=== PATIENT | male | born 1950 | race Caucasian/White ===

== ENCOUNTER 2017-03-04 08:52 | Inpatient (IN) | payer MEDICARE ==
[2017-03-04] MEDS ORDERED: DUONEB 0.5-3 MG/3 ml Neb IH ONE ×2 (09:16→09:23)
--- NOTE | 2017-03-04 09:24 | ERPHSYRPT ---
- History of Present Illness Time Seen by Provider: 03/04/17 08:57 Source: patient, family (POA) Patient Subjective Stated Complaint: pt here for not eating well and cough nondroductive,no fever, Triage Nursing Assessment: pt arrived via wc,right arm and leg flaccid for an old stroke, pt alert, states it is hard for him to talk, she tells history , skin w/d pink. resp easy. chest clear Physician History: CC: cough Hx: 66 y/o patient moved here 6 months ago. He has cough for one month. Remote hx of stroke. No hx of heart or lung disease. He has a stented AAA. He has decreased apetite. Fevers present but last was one week ago. He has generalized weakness. No abd pain. No V/D. Normal urination. Severity: moderate Allergies/Adverse Reactions: Penicillins Allergy (Verified 03/04/17 09:07) Home Medications: No Reportable Medications [No Reported Medications] 03/04/17 [History] Hx Influenza Vaccination/Date Given: No Hx Pneumococcal Vaccination/Date Given: No Immunizations Up to Date: Yes - Review of Systems Constitutional: Fever, Fatigue, Malaise, Weakness Eyes: No Symptoms Respiratory: Cough, No Dyspnea Cardiac: No Chest Pain Abdominal/Gastrointestinal: No Abdominal Pain, No Nausea, No Vomiting, No Diarrhea Genitourinary Symptoms: No Dysuria Skin: No Rash Neurological: No Headache All Other Systems: Reviewed and Negative - Past Medical History Pertinent Past Medical History: Yes Neurological History: Stroke History: Other Other Medical History: abd aneurysm - Past Surgical History Past Surgical History: Yes Gastrointestinal: Other Other Surgical History: abd aneurysm - Social History Smoking Status: Former smoker Exposure to second hand smoke: Yes Drug Use: none Patient Lives Alone: No - Nursing Vital Signs Nursing Vital Signs: Initial Vital Signs Temperature 99.3 F 03/04/17 08:57 Pulse Rate 98 H 03/04/17 08:57 Respiratory Rate 20 03/04/17 08:57 Blood Pressure 164/93 03/04/17 08:57 O2 Sat by Pulse Oximetry 97 03/04/17 08:57 Pain Scale Pain Intensity 0 - Physical Exam General Appearance: alert Eye Exam: PERRL/EOMI Ears, Nose, Throat Exam: dry mucous membranes Neck Exam: normal inspection, non-tender, supple Respiratory Exam: diminished breath sounds, wheezing, No respiratory distress Cardiovascular Exam: regular rate/rhythm Gastrointestinal/Abdomen Exam: soft, No tenderness, No distention, No mass, No guarding Male Genitalia Exam: normal genitalia Extremity Exam: normal inspection, No calf tenderness, No pedal edema Neurologic Exam: alert, oriented x 3, cooperative, sensation nml, No motor deficits Skin Exam: warm, dry, No rash SpO2 Interpretation: normal SpO2: 97 Oxygen Delivery: Room Air - Course Nursing assessment & vital signs reviewed: Yes - Radiology Exams cxr X-ray Interpretation: Teleradiologist Report, Negative Ordered Tests: Active Orders 24 hr Category Date Time Status Clean Catch Urine Specimen STAT Care 03/04/17 09:24 Active IV Insertion STAT Care 03/04/17 09:16 Active CHEST 1 VIEW (PORTABLE) Stat Exams 03/04/17 09:17 Completed BLOOD CULTURE Stat Lab 03/04/17 09:30 Received CBC W DIFF Stat Lab 03/04/17 09:10 Completed CMP Stat Lab 03/04/17 09:10 Completed CULTURE,URINE Stat Lab 03/04/17 11:30 Received Lactic Acid Stat Lab 03/04/17 09:19 Completed UA W/ MICROSCOPIC Stat Lab 03/04/17 11:30 Completed Respiratory Nebulizer STAT RT 03/04/17 09:17 Completed Respiratory Nebulizer STAT RT 03/04/17 11:12 Active Medication Summary Generic Name Dose Route Start Last Admin Trade Name Freq PRN Reason Stop Dose Admin Levofloxacin/Dextrose 750 mg in 150 mls @ 100 mls/hr 03/04/17 12:04 Levofloxacin 750mg/150ml D5w IV 03/04/17 13:33 STAT STA Discontinued Medications Generic Name Dose Route Start Last Admin Trade Name Freq PRN Reason Stop Dose Admin Albuterol Sulfate 2.5 mg 03/04/17 11:11 03/04/17 11:22 Proventil 2.5 Mg/3 Ml Neb IH 03/04/17 11:12 2.5 mg STAT ONE Administration Albuterol Sulfate Confirm 03/04/17 11:20 Proventil 2.5 Mg/3 Ml Neb Administered 03/04/17 11:21 Dose 2.5 mg IH .STK-MED ONE Albuterol/Ipratropium 3 ml 03/04/17 09:16 01/05/18 09:29 Duoneb 0.5-3 Mg/3 Ml Neb IH 03/04/17 09:17 3 ml STAT ONE Administration Albuterol/Ipratropium Confirm 03/04/17 09:23 Duoneb 0.5-3 Mg/3 Ml Neb Administered 03/04/17 09:24 Dose 3 ml IH .STK-MED ONE Methylprednisolone Sodium Succinate 125 mg 03/04/17 11:35 03/04/17 11:55 Solu-Medrol 125 Mg IV 03/04/17 11:36 125 mg STAT ONE Administration Methylprednisolone Sodium Succinate Confirm 03/04/17 11:53 Solu-Medrol 125 Mg Administered 03/04/17 11:54 Dose 125 mg .ROUTE .STK-MED ONE Lab/Rad Data: Laboratory Result Diagrams 03/04/17 09:10 03/04/17 09:10 Laboratory Results 03/04/17 03/04/17 03/04/17 Range/Units 11:30 09:19 09:10 WBC (4.0-10.5) K/mm3 RBC (4.1-5.6) M/mm3 Hgb (12.5-18.0) gm/dl Hct (42-50) % MCV (78-100) fl MCH (26-32) pg MCHC (32-36) g/dl RDW (11.5-14.0) % Plt Count (150-450) K/mm3 MPV (6-9.5) fl Gran % (36.0-66.0) % Lymphocytes % (24.0-44.0) % Monocytes % (0.0-12.0) % Eosinophils % (0.00-5.0) % Basophils % (0.0-0.4) % Basophils # (0-0.4) Sodium 138 (136-145) mEq/L Potassium 4.0 (3.5-5.1) mEq/L Chloride 101 (98-107) mEq/L Carbon Dioxide 25.4 (21-32) mEq/L Anion Gap 15.1 H (5-15) MEQ/L BUN 13 (9-20) mg/dL Creatinine 1.51 H (0.55-1.30) mg/dl Estimated GFR 50 ML/MIN Glucose 120 H (70-110) MG/DL Lactic Acid 1.2 (0.4-2.0) Calcium 9.2 (8.5-10.1) mg/dL Total Bilirubin 0.60 (0.2-1.0) mg/dL AST 32 (15-37) U/L ALT 30 (12-78) U/L Alkaline Phosphatase 111 (46-116) U/L Serum Total Protein 9.7 H (6.4-8.2) gm/dL Albumin 3.5 (3.4-5.0) g/dL Ur Collection Type CLEAN CATCH Urine Color DARK YELLOW (YELLOW) Urine Appearance HAZY (CLEAR) Urine pH 5.0 (5-6) Ur Specific [place] 1.020 (1.005-1.025) Urine Protein TRACE (Negative) Urine Ketones NEGATIVE (NEGATIVE) Urine Blood MODERATE (0-5) Parish/ul Urine Nitrite NEGATIVE (NEGATIVE) Urine Bilirubin NEGATIVE (NEGATIVE) Urine Urobilinogen NORMAL (0-1) mg/dL Ur Leukocyte Esterase NEGATIVE (NEGATIVE) Urine Microscopic RBC 15-25 (0-2) /HPF Ur Epithelial Cells FEW (FEW) /HPF Urine Bacteria MODERATE (NEGATIVE) /HPF Urine Culture Reflexed YES (NO) Urine Glucose NEGATIVE (NEGATIVE) mg/dL Slides for Path Review Specimen Received 03/04/17 1130 03/04/17 Range/Units 09:10 WBC 11.4 H (4.0-10.5) K/mm3 RBC 5.07 (4.1-5.6) M/mm3 Hgb 13.8 (12.5-18.0) gm/dl Hct 44.2 (42-50) % MCV 87.2 (78-100) fl MCH 27.2 (26-32) pg MCHC 31.2 L (32-36) g/dl RDW 13.8 (11.5-14.0) % Plt Count 244 (150-450) K/mm3 MPV 11.3 H (6-9.5) fl Gran % 58.6 (36.0-66.0) % Lymphocytes % 25.4 (24.0-44.0) % Monocytes % 12.7 H (0.0-12.0) % Eosinophils % 3.0 (0.00-5.0) % Basophils % 0.3 (0.0-0.4) % Basophils # 0.03 (0-0.4) Sodium (136-145) mEq/L Potassium (3.5-5.1) mEq/L Chloride (98-107) mEq/L Carbon Dioxide (21-32) mEq/L Anion Gap (5-15) MEQ/L BUN (9-20) mg/dL Creatinine (0.55-1.30) mg/dl Estimated GFR ML/MIN Glucose (70-110) MG/DL Lactic Acid (0.4-2.0) Calcium (8.5-10.1) mg/dL Total Bilirubin (0.2-1.0) mg/dL AST (15-37) U/L ALT (12-78) U/L Alkaline Phosphatase (46-116) U/L Serum Total Protein (6.4-8.2) gm/dL Albumin (3.4-5.0) g/dL Ur Collection Type Urine Color (YELLOW) Urine Appearance (CLEAR) Urine pH (5-6) Ur Specific [place] (1.005-1.025) Urine Protein (Negative) Urine Ketones (NEGATIVE) Urine Blood (0-5) Parish/ul Urine Nitrite (NEGATIVE) Urine Bilirubin (NEGATIVE) Urine Urobilinogen (0-1) mg/dL Ur Leukocyte Esterase (NEGATIVE) Urine Microscopic RBC (0-2) /HPF Ur Epithelial Cells (FEW) /HPF Urine Bacteria (NEGATIVE) /HPF Urine Culture Reflexed (NO) Urine Glucose (NEGATIVE) mg/dL Slides for Path Review Specimen Received - Progress Progress Note: 03/04/17 10:11 No hx of platelet problem in the past. 03/04/17 11:09 Recheck platelet count normal at 244. 03/04/17 12:07 Wheezes improved with 2 nebs. Now fine crackes. No distress. Too weak to go home. Called Dr Gracia (oc) and will place in obs for COPD/cough and consult soial services. Counseled pt/family regarding: lab results, diagnosis, need for follow-up, rad results - Departure Time of Disposition: 12:08 Departure Disposition: Observation Clinical Impression: Acute asthmatic bronchitis, Generalized weakness, prior stroke Condition: Fair Critical Care Time: No Referrals: DOCTOR,NO FAMILY [Primary Care Provider] -
[2017-03-04 09:57] LABS: BASOPHIL % 0.3 % (0.0-0.4); Basophil (Absolute #) 0.03 (0-0.4); Eosinophil (Absolute #) 0.34 (0-0.5); Granulocyte Absolute (ANC) 6.71 (1.4-6.9); Granulocytes % 58.6 % (36.0-66.0); Hematocrit 44.2 % (42-50); Hemoglobin 13.8 gm/dl (12.5-18.0); Lymphocytes % 25.4 % (24.0-44.0); Mean Cell Volume 87.2 fl (78-100); Mean Corpuscular Hemoglobin 27.2 pg (26-32); Mean Corpuscular Hgb Concent. 31.2 g/dl (32-36); Mean Platelet Volume 11.3 fl (6-9.5); Monocyte (Absolute #) 1.45 (0.0-1.3); Monocytes % 12.7 % (0.0-12.0); Red Blood Count 5.07 M/mm3 (4.1-5.6); Red Cell Distribution Width 13.8 % (11.5-14.0); White Blood Count 11.4 K/mm3 (4.0-10.5)
--- NOTE | 2017-03-04 09:57 | XRAY ---
Indication: Cough. Comparison: None Portable chest is clear. Heart is not enlarged. Bony thorax intact with mild degenerative changes. Impression: Nonacute chest.
[2017-03-04 10:02] LABS: ALBUMIN 3.5 g/dL (3.4-5.0); ANION GAP 15.1 MEQ/L (5-15); BILIRUBIN,TOTAL 0.6 mg/dL (0.2-1.0); Calcium 9.2 mg/dL (8.5-10.1); Carbon Dioxide 25.4 mEq/L (21-32); Creatinine 1 1.51 mg/dl (0.55-1.30); Total Protein 9.7 gm/dL (6.4-8.2)
[2017-03-04 11:06] LABS: Platelet Count 244 K/mm3 (150-450)
[2017-03-04] MEDS ORDERED: PROVENTIL 2.5 MG/3 ML NEB IH ONE ×2 (11:11→11:20)
[2017-03-04] MEDS ORDERED: solu-MEDROL 125 MG IV ONE (11:35)
[2017-03-04 11:41] LABS: Appearance HAZY (CLEAR); Bilirubin NEGATIVE (NEGATIVE); Blood MODERATE Ery/ul (0-5); Glucose NEGATIVE (NEGATIVE); Ketones NEGATIVE (NEGATIVE); Leukocyte Esterase NEGATIVE (NEGATIVE); Nitrite NEGATIVE (NEGATIVE); Protein,Urine Dip TRACE (Negative); Urobilinogen NORMAL mg/dL (0-1)
[2017-03-04 11:42] LABS: Bacteria MODERATE /HPF (NEGATIVE); Epithelial Cells FEW /HPF (FEW)
[2017-03-04] MEDS ORDERED: solu-MEDROL 125 MG ONE (11:53)
[2017-03-04] MEDS ORDERED: LEVOFLOXACIN 750MG/150ML D5W 750 MG/150 ML BAG IV STA (12:04)
[2017-03-04] MEDS ORDERED: TYLENOL 325 MG PO PRN (13:05)
[2017-03-04] MEDS: Sodium Chloride 0.9% 1000 ML 1,000 ML IV SCH (13:53)
[2017-03-04] MEDS: LEVOFLOXACIN 750MG/150ML D5W 750 MG/150 ML BAG IV SCH (13:53)
[2017-03-04] MEDS: Pepcid 20 MG VIAL IV SCH ×3 (13:53→22:07)
[2017-03-04] MEDS ORDERED: DUONEB 0.5-3 MG/3 ml Neb IH SCH (15:00)
[2017-03-04] MEDS ORDERED: PHARMACY DOSING REQUEST MC ONE (16:17)
[2017-03-04] MEDS ORDERED: Cardizem IV 50 MG/10 ML IV ONE ×2 (16:33→17:24)
[2017-03-04] MEDS ORDERED: DUONEB 0.5-3 MG/3 ml Neb IH PRN (16:36)
[2017-03-04] MEDS: CARDIZEM DRIP 100 MG/100 ML D5W 100 ML IV PRN (17:08)
[2017-03-04] MEDS: ENOXAPARIN SODIUM SQ SCH (17:43)
[2017-03-04] MEDS: solu-MEDROL 125 MG IV SCH (18:01)
[2017-03-04] MEDS ORDERED: BABY ASPIRIN 81 MG CHEW PO SCH (18:30)
[2017-03-05] MEDS: CARDIZEM DRIP 100 MG/100 ML D5W 100 ML IV PRN (00:55)
[2017-03-05] MEDS: solu-MEDROL 125 MG IV SCH ×2 (00:55→07:01)
[2017-03-05] MEDS: Sodium Chloride 0.9% 1000 ML 1,000 ML IV SCH (07:00)
[2017-03-05 07:46] LABS: Granulocyte Absolute (ANC) 15.91 (1.4-6.9); Hematocrit 41.5 % (42-50); Hemoglobin 13.3 gm/dl (12.5-18.0); Mean Cell Volume 85.7 fl (78-100); Mean Corpuscular Hemoglobin 27.5 pg (26-32); Mean Platelet Volume 12.2 fl (6-9.5); Red Blood Count 4.84 M/mm3 (4.1-5.6); Red Cell Distribution Width 13.4 % (11.5-14.0); White Blood Count 18.5 K/mm3 (4.0-10.5)
[2017-03-05 07:50] LABS: Platelet Count 249 K/mm3 (150-450)
[2017-03-05 08:07] LABS: Carbon Dioxide 22.9 mEq/L (21-32); Creatinine 1 1.4 mg/dl (0.55-1.30); Potassium 4.5 mEq/L (3.5-5.1); Risk Ratio 6.7; TSH, 3RD Generation 0.466 mIU/L (0.358-3.740)
--- NOTE | 2017-03-05 09:10 | PCM.NOTE ---
Date and Time: 03/05/17904 Subjective Assessment: His nurse is at the bedside and reports that the patient's told him that he can take medications by mouth but refuses to take any medication. The patient can only answer yes or no questions and agrees that this is the case. He denies any pain. His nurse reports he only needed a breathing treatment once overnight. - Review of Systems All Other Systems: Unable due to condition (Patient has aphasia) Objective Exam General Appearance: no apparent distress Neurologic Exam: alert, cooperative Skin Exam: normal color, warm, dry Respiratory Exam: respiratory distress, other (few scattered wheezes), No crackles/rales, No rhonchi, No wheezing Cardiovascular Exam: other (irregularly irregular) Gastrointestinal/Abdomen Exam: soft, normal bowel sounds, No tenderness, No distention, No mass Extremity Exam: other (no c/c/e) OBJECTIVE DATA Vital Signs: Vital Signs - 24 hr Temp Pulse Resp BP BP Pulse Ox 03/05/17 08:59 92 H 17 177/134 95 03/05/17 08:00 83 18 151/87 95 03/05/17 07:00 97.3 F 84 18 132/87 92 L 03/05/17 06:00 86 13 137/95 95 03/05/17 05:00 85 12 168/81 93 L 03/05/17 04:00 97.5 F 78 20 142/90 96 03/05/17 03:00 77 16 165/84 94 L 03/05/17 01:58 86 14 131/84 95 03/05/17 01:00 76 17 136/91 96 03/04/17 23:39 98.2 F 81 20 146/90 94 L 03/04/17 22:57 88 18 136/81 94 L 03/04/17 22:00 89 20 129/86 96 03/04/17 21:54 93 H 19 95 03/04/17 21:00 88 17 139/78 94 L 03/04/17 19:59 99 H 15 147/81 94 L 03/04/17 19:34 97.4 F 96 H 14 139/84 94 L 03/04/17 19:00 108 H 18 148/87 92 L 03/04/17 18:00 102 H 18 151/86 92 L 03/04/17 17:28 107 H 17 125/75 92 L 03/04/17 17:08 121 H 18 144/83 03/04/17 17:00 125 H 18 152/83 93 L 03/04/17 16:00 96.8 F 142 H 22 129/84 94 L 03/04/17 14:33 98 H 16 93 L 03/04/17 13:25 99.2 F 107 H 18 157/69 94 L 03/04/17 12:08 97 03/04/17 11:50 104 H 22 155/91 96 03/04/17 11:12 94 H 18 96 03/04/17 10:58 86 18 156/90 97 03/04/17 10:53 81 20 95 03/04/17 09:32 86 22 94 L Pain Assessment - Last Documented Pain Intensity 0 Intake and Output: Intake & Output 03/03/17 03/04/17 03/05/17 03/06/17 06:59 06:59 06:59 06:59 Intake Total 917 Output Total 620 Balance 297 Weight 83.3 kg Lab Results: Lab Results-Last 24 Hours 03/04/17 03/05/17 03/05/17 Range/Units 18:17 02:30 05:35 WBC 18.5 H (4.0-10.5) K/mm3 RBC 4.84 (4.1-5.6) M/mm3 Hgb 13.3 (12.5-18.0) gm/dl Hct 41.5 L (42-50) % MCV 85.7 (78-100) fl MCH 27.5 (26-32) pg MCHC 32.0 (32-36) g/dl RDW 13.4 (11.5-14.0) % Plt Count 249 (150-450) K/mm3 MPV 12.2 H (6-9.5) fl Sodium (136-145) mEq/L Potassium (3.5-5.1) mEq/L Chloride (98-107) mEq/L Carbon Dioxide (21-32) mEq/L Anion Gap (5-15) MEQ/L BUN (9-20) mg/dL Creatinine (0.55-1.30) mg/dl Estimated GFR ML/MIN Glucose (70-110) MG/DL Calcium (8.5-10.1) mg/dL Troponin I < 0.017 < 0.017 (0.000-0.056) ng/ml Triglycerides (30-200) mg/dL Cholesterol (100-200) mg/dL LDL Cholesterol (5-99) mg/dL HDL Cholesterol (35-60) mg/dL Heart Disease Risk Ratio TSH 3rd Generation (0.358-3.740) mIU/L 03/05/17 Range/Units 05:35 WBC (4.0-10.5) K/mm3 RBC (4.1-5.6) M/mm3 Hgb (12.5-18.0) gm/dl Hct (42-50) % MCV (78-100) fl MCH (26-32) pg MCHC (32-36) g/dl RDW (11.5-14.0) % Plt Count (150-450) K/mm3 MPV (6-9.5) fl Sodium 137 (136-145) mEq/L Potassium 4.5 (3.5-5.1) mEq/L Chloride 103 (98-107) mEq/L Carbon Dioxide 22.9 (21-32) mEq/L Anion Gap 16.0 H (5-15) MEQ/L BUN 15 (9-20) mg/dL Creatinine 1.40 H (0.55-1.30) mg/dl Estimated GFR 54 ML/MIN Glucose 174 H (70-110) MG/DL Calcium 9.0 (8.5-10.1) mg/dL Troponin I (0.000-0.056) ng/ml Triglycerides 120 (30-200) mg/dL Cholesterol 201 H (100-200) mg/dL LDL Cholesterol 139 H (5-99) mg/dL HDL Cholesterol 30 L (35-60) mg/dL Heart Disease Risk Ratio 6.7 TSH 3rd Generation 0.466 (0.358-3.740) mIU/L Radiology Exams: Radiology Procedures Category Date Time Status ECHO W/2D AND DOPPLER [US] Routine Exams 03/07/17 10:00 Stop Req Multi-Disciplinary Progress Notes: Multi-Disciplinary Progress Notes 03/04/17 17:27 Pharmacy Note by Thompson Varghese 2nd note... ordered a 2nd bolus.... hr still 140-150 20 mg x 1 more dose 'iv rate at 10 mg/hr. rosa maria Initialized on 03/04/17 17:27 - END OF NOTE 03/04/17 16:39 Pharmacy Note by Thompson Varghese REQUEST PHARMACY TO DOSE CARDIZEM FOR AFIB HR =152 BP 150/90 ACCORDING TO NURSE PATIENT NOT DEHYDRATED GIVE 0.25 MG/KG (20 MG ) IV BOLUS THEN START DRIP @ 5 MG/HR ROSA MARIA Initialized on 03/04/17 16:39 - END OF NOTE Assessment/Plan (1) Atrial fibrillation with RVR Current Visit: Yes Status: Acute Assessment & Plan: Currently his rate is controlled on the diltiazem drip. Will change to cardizem ER 180 mg po daily and try to stop drip. Will consult Dr. Rao. Currently on lovenox at anticoagulation doses. Will need to make sure the a.fib is not due to valve problems on echo before deciding on anticoagulation prison. Code(s): I48.91 - UNSPECIFIED ATRIAL FIBRILLATION (2) History of cerebrovascular accident (CVA) with residual deficit Current Visit: Yes Status: Acute Assessment & Plan: Start statin. Hold on ROXY inhibitor as creatinine slightly elevated. Code(s): I69.30 - UNSPECIFIED SEQUELAE OF CEREBRAL INFARCTION (3) COPD with exacerbation Current Visit: Yes Status: Acute Assessment & Plan: Continue levofloxacin. Change to prednisone and stop IV steroids. I think the steroids are causing his leukocytosis today. Code(s): J44.1 - CHRONIC OBSTRUCTIVE PULMONARY DISEASE W (ACUTE) EXACERBATION (4) Leukocytosis Current Visit: Yes Status: Acute Code(s): D72.829 - ELEVATED WHITE BLOOD CELL COUNT, UNSPECIFIED (5) Hypertension Current Visit: Yes Status: Acute Assessment & Plan: Changing to oral diltiazem.Will add HCTZ. Hydralazine IV prn. Code(s): I10 - ESSENTIAL (PRIMARY) HYPERTENSION (6) Depression Current Visit: Yes Status: Acute Assessment & Plan: [facility] consult for depression. If patient does refuse his oral medications, he will need an evaluation by [facility] to make sure they feel he is competent to make this decision as not taking his medications will most likely result in . Code(s): F32.9 - MAJOR DEPRESSIVE DISORDER, SINGLE EPISODE, UNSPECIFIED
[2017-03-05] MEDS ORDERED: Miscellaneous Medication Order MC ONE (09:16)
[2017-03-05] MEDS ORDERED: APRESOLINE 20 MG/ML INJ IV PRN (09:18)
[2017-03-05] MEDS: LEVOFLOXACIN 750MG/150ML D5W 750 MG/150 ML BAG IV SCH (09:35)
[2017-03-05] MEDS: Cardizem CD 180 MG PO SCH (09:35)
[2017-03-05] MEDS: ECOTRIN 81 MG PO SCH (09:35)
[2017-03-05] MEDS: DELTASONE 20 MG PO SCH (09:36)
[2017-03-05] MEDS: hydroDIURIL 25 MG PO SCH (09:36)
[2017-03-05] MEDS: ENOXAPARIN SODIUM SQ SCH ×2 (09:36→22:08)
[2017-03-05 09:39] LABS: BAND 6 % (0.0-2.0); Lymphocytes 31 % (24-44); Monocyte 2 % (0.0-12.0); Neutrophils 61 % (36.-66.); Total Cells Counted 100
[2017-03-05 09:40] LABS: ANISOCYTOSIS 1+; Poikilocytosis 1+
[2017-03-05 09:41] LABS: Platelet Estimate NORMAL (NORMAL)
[2017-03-05] MEDS: LIPITOR 40MG PO SCH (22:08)
[2017-03-06] MEDS: Sodium Chloride 0.9% 1000 ML 1,000 ML IV SCH (03:58)
[2017-03-06 05:54] LABS: Granulocyte Absolute (ANC) 18.13 (1.4-6.9); Hemoglobin 12.8 gm/dl (12.5-18.0); Mean Cell Volume 85.7 fl (78-100); Mean Corpuscular Hemoglobin 27.4 pg (26-32); Mean Platelet Volume 12.8 fl (6-9.5); Red Blood Count 4.67 M/mm3 (4.1-5.6); Red Cell Distribution Width 13.5 % (11.5-14.0); White Blood Count 20.9 K/mm3 (4.0-10.5)
[2017-03-06 06:08] LABS: ANION GAP 14.8 MEQ/L (5-15); Calcium 8.7 mg/dL (8.5-10.1); Carbon Dioxide 23.1 mEq/L (21-32); Creatinine 1 1.51 mg/dl (0.55-1.30); Potassium 3.6 mEq/L (3.5-5.1)
[2017-03-06 06:12] LABS: Platelet Count 247 K/mm3 (150-450)
[2017-03-06 07:36] LABS: ANISOCYTOSIS 1+; ATYPICAL LYMPHS 2 %; BAND 5 % (0.0-2.0); Lymphocytes 8 % (24-44); Monocyte 2 % (0.0-12.0); Neutrophils 83 % (36.-66.); Poikilocytosis 1+; Total Cells Counted 100
[2017-03-06 07:38] LABS: Platelet Estimate NORMAL (NORMAL)
[2017-03-06] MEDS: DELTASONE 20 MG PO SCH (10:29)
[2017-03-06] MEDS: hydroDIURIL 25 MG PO SCH (10:29)
[2017-03-06] MEDS: LEVOFLOXACIN 750MG/150ML D5W 750 MG/150 ML BAG IV SCH (10:30)
[2017-03-06] MEDS: Cardizem CD 180 MG PO SCH (10:30)
[2017-03-06] MEDS: ECOTRIN 81 MG PO SCH (10:30)
[2017-03-06] MEDS: ENOXAPARIN SODIUM SQ SCH ×2 (10:30→22:01)
[2017-03-06] MEDS ORDERED: Zestril 20 MG PO ONE (13:38)
--- NOTE | 2017-03-06 15:13 | PCM.NOTE ---
Date and Time: 03/06/17 1508 Subjective Assessment: He denies any pain. Communication is difficult due to aphasia from the stroke as he can only answer yes or no to questions. His nurse yesterday reported that [facility] wanted to do a face to face with him. He reports he has been taking his medications. He denies any shortness of breath. - Review of Systems Additional Findings: He denies pain. He denies shortness of breath. Denies having any concerns. Additional review is difficult to obtain due to his aphasia. Objective Exam General Appearance: no apparent distress Neurologic Exam: alert, cooperative, aphasia, other (right sided weakness of arm and leg) Skin Exam: normal color, warm, dry Respiratory Exam: normal breath sounds, lungs clear, No crackles/rales, No rhonchi, No wheezing Cardiovascular Exam: other (irregularly irregular rhythm, normal rate) Gastrointestinal/Abdomen Exam: soft, normal bowel sounds, No tenderness, No distention, No mass Extremity Exam: other (no c/c/e) OBJECTIVE DATA Vital Signs: Vital Signs - 24 hr Temp Pulse Resp BP Pulse Ox 03/06/17 11:45 98.2 F 66 18 185/88 94 L 03/06/17 08:12 98 F 64 18 155/68 96 03/06/17 04:00 97.9 F 61 13 161/67 95 03/05/17 23:56 98.2 F 65 15 159/63 92 L 03/05/17 21:36 67 15 91 L 03/05/17 20:00 98.6 F 74 20 166/85 94 L 03/05/17 16:00 97.4 F 87 17 161/94 94 L Pain Assessment - Last Documented Pain Intensity 0 Intake and Output: Intake & Output 03/04/17 03/05/17 03/06/17 03/07/17 06:59 06:59 06:59 06:59 Intake Total 917 1975 Output Total 620 350 Balance 297 1625 Weight 83.3 kg Lab Results: Lab Results-Last 24 Hours 03/06/17 03/06/17 Range/Units 05:35 05:35 WBC 20.9 H (4.0-10.5) K/mm3 RBC 4.67 (4.1-5.6) M/mm3 Hgb 12.8 (12.5-18.0) gm/dl Hct 40.0 L (42-50) % MCV 85.7 (78-100) fl MCH 27.4 (26-32) pg MCHC 32.0 (32-36) g/dl RDW 13.5 (11.5-14.0) % Plt Count 247 (150-450) K/mm3 MPV 12.8 H (6-9.5) fl Segmented Neutrophils 83 H (36.-66.) % Band Neutrophils 5 H (0.0-2.0) % Lymphocytes (Manual) 8 L (24-44) % Monocytes (Manual) 2 (0.0-12.0) % Differential Comment ABNORMAL Atypical Lymphocytes 2 % Platelet Estimate NORMAL (NORMAL) Poikilocytosis 1+ Anisocytosis 1+ Sodium 136 (136-145) mEq/L Potassium 3.6 (3.5-5.1) mEq/L Chloride 102 (98-107) mEq/L Carbon Dioxide 23.1 (21-32) mEq/L Anion Gap 14.8 (5-15) MEQ/L BUN 22 H (9-20) mg/dL Creatinine 1.51 H (0.55-1.30) mg/dl Estimated GFR 50 ML/MIN Glucose 189 H (70-110) MG/DL Calcium 8.7 (8.5-10.1) mg/dL Radiology Exams: Radiology Procedures Category Date Time Status ECHO W/2D AND DOPPLER [US] Routine Exams 03/07/17 10:00 Stop Req Assessment/Plan (1) Atrial fibrillation with controlled ventricular response Current Visit: Yes Status: Acute Assessment & Plan: Rate is currently controlled with oral diltiazem. Continue lovenox 1 mg/kg q [address] Rao consulted. Code(s): I48.91 - UNSPECIFIED ATRIAL FIBRILLATION (2) History of cerebrovascular accident (CVA) with residual deficit Current Visit: Yes Status: Acute Assessment & Plan: Stable at this time. Continue aspirin 81 mg po daily. Code(s): I69.30 - UNSPECIFIED SEQUELAE OF CEREBRAL INFARCTION (3) COPD with exacerbation Current Visit: Yes Status: Acute Assessment & Plan: Decrease prednisone to 20 mg po daily. Code(s): J44.1 - CHRONIC OBSTRUCTIVE PULMONARY DISEASE W (ACUTE) EXACERBATION (4) Leukocytosis Current Visit: Yes Status: Acute Assessment & Plan: I think this is due to the steroids. His lungs are clear, urine culture and blood cultures are now growth to date, he is not on any oxygen and he is afebrile. Code(s): D72.829 - ELEVATED WHITE BLOOD CELL COUNT, UNSPECIFIED (5) Hypertension Current Visit: Yes Status: Acute Assessment & Plan: I started lisinopril. Continue cardizem. Code(s): I10 - ESSENTIAL (PRIMARY) HYPERTENSION (6) Depression Current Visit: Yes Status: Acute Assessment & Plan: [facility] plans to see him Tuesday. Code(s): F32.9 - MAJOR DEPRESSIVE DISORDER, SINGLE EPISODE, UNSPECIFIED
[2017-03-06] MEDS: LIPITOR 40MG PO SCH ×2 (22:01→22:03)
[2017-03-07] MEDS: Sodium Chloride 0.9% 1000 ML 1,000 ML IV SCH ×2 (00:04→21:36)
[2017-03-07 06:09] LABS: Granulocyte Absolute (ANC) 12.98 (1.4-6.9); Hematocrit 39.6 % (42-50); Hemoglobin 12.5 gm/dl (12.5-18.0); Mean Cell Volume 86.1 fl (78-100); Mean Corpuscular Hemoglobin 27.2 pg (26-32); Mean Corpuscular Hgb Concent. 31.6 g/dl (32-36); Mean Platelet Volume 11.8 fl (6-9.5); Red Cell Distribution Width 13.8 % (11.5-14.0); White Blood Count 16.9 K/mm3 (4.0-10.5)
[2017-03-07 06:25] LABS: Calcium 8.3 mg/dL (8.5-10.1); Carbon Dioxide 25.4 mEq/L (21-32); Creatinine 1 1.4 mg/dl (0.55-1.30); Potassium 3.5 mEq/L (3.5-5.1)
[2017-03-07 06:33] LABS: Platelet Count 216 K/mm3 (150-450)
[2017-03-07 07:04] LABS: BAND 1 % (0.0-2.0); Lymphocytes 16 % (24-44); Monocyte 2 % (0.0-12.0); Neutrophils 81 % (36.-66.); Total Cells Counted 100
[2017-03-07 07:06] LABS: Platelet Estimate NORMAL (NORMAL)
--- NOTE | 2017-03-07 08:13 | HP ---
HISTORY OF PRESENT ILLNESS: This is a 66 year-old man who presented to the emergency department with his ex- who is his Power of General Office Clerk (POA). The history is taken from the emergency room physician report as his POA is not present now. She stated that they moved here six months ago and he has had a cough for the past month, a remote history of a stroke and a stent to abdominal aortic aneurysm. She reported he had fevers but none for the past week and generalized he has been very weak. He has not complained of any pain. After the patient arrived to Med/Surg, I was called as the patient had tachycardia and some irregular heartbeat and they done an EKG and this revealed atrial fibrillation so the patient was transferred to the ICU to be started on Cardizem drip. REVIEW OF SYSTEMS: He can answer Yes or No to questions. He denies any pain. When asked if he has a good appetite he said "No". Otherwise review of systems is unobtainable due to his aphasia from history of a stroke. MEDICATIONS: None. ALLERGIES: PENICILLIN. PHYSICAL EXAMINATION: VITAL SIGNS: Temperature current 96.8F, temperature max 99.3F, heart rate 84 to 122, respiratory rate 16 to 22, blood pressure 125 to 164 over 75 to 93. Oxygen saturation 92 to 97% on room air. GENERAL: The patient is lying in bed. He is awake and again will answer Yes or No to questions. CVS: His heart has an irregularly irregular tachycardic rhythm with no murmurs, gallops or rubs appreciated. CHEST: He has wheezing bilaterally when auscultated anteriorly. ABDOMEN: Soft, nontender, nondistended with normal bowel sounds. EXTREMITIES: He has weakness of his right arm and right leg and is unable to move these. NEURO: His speech is affected by history of a stroke. LABORATORY DATA AND TESTS: White blood cell count 11,400. Creatinine 1.5. UA with 15 to 25 red blood cells, moderate bacteria. Blood cultures and urine cultures are in lab. Chest x-ray was read as nonacute chest on a portable x-ray. EKG was atrial fibrillation with heart rate of 149. ASSESSMENT AND PLAN: 1) ATRIAL FIBRILLATION WITH RAPID VENTRICULAR RESPONSE: I asked the pharmacy to dose the Cardizem. They gave him two - 10 mg boluses and he is currently on a drip. His heart rate is fluctuating between 80 - 120. I have started him on Lovenox 1 mg/kg subcutaneously every 12 hours. I have ordered an echocardiogram for Tuesday. Hopefully we will be able to change his Cardizem to oral form tomorrow if his rate is under control, will check serial troponins and another EKG. I will check his TSH. I will check a fasting lipid profile in the morning. 2) HISTORY OF STROKE. I am going to start him on an 81 mg aspirin, will continue with anticoagulation with Lovenox. 3) CHRONIC OBSTRUCTIVE PULMONARY DISEASE EXACERBATION: He has been started on levofloxacin and IV steroids as well as DuoNeb and will continue with these. 4) RENAL INSUFFICIENCY: Will recheck his creatinine in the morning. He is on IV fluids at the rate of 60 ml/hour right now. 5) DEEP VENOUS THROMBOSIS PROPHYLAXIS: Again he is on Lovenox now.
[2017-03-07] MEDS: ECOTRIN 81 MG PO SCH ×2 (10:06→15:09)
[2017-03-07] MEDS: Cardizem CD 180 MG PO SCH ×2 (10:06→15:09)
[2017-03-07] MEDS: DELTASONE 20 MG PO SCH ×2 (10:06→15:09)
[2017-03-07] MEDS: ENOXAPARIN SODIUM SQ SCH ×3 (10:07→23:44)
[2017-03-07] MEDS: LEVOFLOXACIN 750MG/150ML D5W 750 MG/150 ML BAG IV SCH ×2 (10:07→15:09)
[2017-03-07] MEDS: Zestril 20 MG PO SCH ×2 (10:07→15:09)
[2017-03-07] MEDS: hydroDIURIL 25 MG PO SCH ×2 (10:07→15:09)
--- NOTE | 2017-03-07 10:53 | CONS ---
CONSULT DATE: 03/06/2017 BRIEF HISTORY: This is a 66 year-old male who was seen for atrial fibrillation. The patient was initially admitted because of cough and diagnosed to have bronchitis. While he was monitored he went into atrial fibrillation and was placed on Cardizem. He is back to sinus rhythm. The patient is unable to give any meaningful historical information. He had a stroke and is only able to answer questions with Yes or No. He has history of endovascular repair of abdominal aortic aneurysm based on historic information. CARDIAC RISK FACTORS: Negative for diabetes. Positive for hypertension. He does not smoke. Positive for hyperlipidemia. CURRENT MEDICATIONS: Aspirin, Lipitor, diltiazem, subcu Lovenox, hydrochlorothiazide, lisinopril. 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 There is no definite history of any heart or lung disease. GI: Still able to take oral medication but has to be crushed. : No renal symptoms noted. SOCIAL HISTORY: He lives at home with his ex-. No significant alcohol intake. PHYSICAL EXAMINATION: Blood pressure 161/67, heart rate 61, respirations about 14. GENERAL: The patient is an elderly male who is awake somewhat mild aphasic. HEENT: Unremarkable. NECK: No significant JVD. No carotid bruit. CHEST: The breath sounds are harsh. CARDIAC: Heart tones are normal. The rhythm is regular. There is a grade 2/6 mid systolic murmur. ABDOMEN: Soft with normal bowel sounds. EXTREMITIES: No significant edema with decreased distal pulses. LAB DATA AND DIAGNOSTIC TESTS: The EKG earlier from 03/04/2017 showed atrial fibrillation. The rhythm strip now shows sinus rhythm. IMPRESSION: In essence the patient had paroxysmal atrial fibrillation currently in normal sinus rhythm, continue with Cardizem drip. 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 Echocardiogram will be obtained. We will continue with current medications to control blood pressure. I suggest placing the patient on Norvasc.
--- NOTE | 2017-03-07 14:42 | PCM.NOTE ---
Date and Time: 03/07/17 7414 Subjective Assessment: Mr Ruiz has expressive aphasia. He only answers yes or no to questions or nods his head yes or no to questions. Nursing reports this afternoon that he has been refusing all his medications since last night. [facility] saw him this AM and reports they do not feel like he is depressed. I used the licensed audiologist line (Urdu is his [place] language) with case finisher, Poncho, this afternoon and he said he was safe at home. When I asked if he felt hopeless he shrugged his shoulders. He said he would refuse to take medications at home when asked. I explained to him why I wanted him to take the medication for atrial fibrillation to keep his blood thin and that that was to prevent stroke and and that the other medication is to control his heart rate when he is in atrial fibrillation so it doesn't beat too fast and make him feel bad or have a heart attack. He voiced he understand and was asked then with this new information if he would be willing to take his medications and he said yes. I asked about his code status and based on him nodding his head yes, he wants to continue to be a full code. I tried to also explain that taking his medications at home will keep him out of the hospital. I explained hospice to him and he was agreeable to evaluation by hospice. Poncho came to tell me that when they went in to give him his medications shortly after this conversation with the licensed audiologist, he said that he would not take them. His ex- and her male friend then arrived. She reported that she and Mr. Ruiz were once and have been for 25 years but she has been caring for him since he had a stroke and that she never remarried.She reports Mr. Ruiz was in [place], [place] when he had his stroke but he was most recently living with her in [place] until they moved to [place] in September or October of 2016. She reports she has been unable to find a doctor for him. She states for 6 years he has refused to take medications but she states she can get him to take them. They brought his medications in at the end of our talk and he took them. He took the capsule whole with chocolate ice cream and the tablets crushed with chocolate ice cream. She reports before she brought him to the ER, he had a high heart rate, was pale and had had a cough and couldn't seem to get it out. She reports he is able to walk, carry a plate and uses a motorized scooter to get around the house. She reports he only says a few words and often motions with his hands. She reports his Vincentian was as good as hers and he can usually understand everything said in Vincentian. She wants to bring him back home. - Review of Systems Constitutional: Other (aphasia, right sided weakness of arm and leg) All Other Systems: Unable due to condition Objective Exam General Appearance: no apparent distress, alert, other (answers yes and no to questions with these words and also nodding or shaking his head.) Skin Exam: normal color, warm, dry Respiratory Exam: normal breath sounds, lungs clear, No crackles/rales, No rhonchi, No wheezing Cardiovascular Exam: regular rate/rhythm, normal heart sounds, No murmur, No friction rub, No gallop Gastrointestinal/Abdomen Exam: soft, normal bowel sounds, No tenderness, No distention, No mass Extremity Exam: other (no c/c/e) OBJECTIVE DATA Vital Signs: Vital Signs - 24 hr Temp Pulse Resp BP Pulse Ox 03/07/17 12:00 98.1 F 65 18 122/65 97 03/07/17 08:37 60 18 94 L 03/07/17 07:48 97.6 F 64 18 131/60 96 03/07/17 04:00 98.1 F 57 L 20 145/67 94 L 03/07/17 00:10 98.4 F 68 22 118/59 93 L 03/06/17 20:00 98.2 F 68 20 148/73 93 L 03/06/17 15:50 97.8 F 71 18 148/72 96 Pain Assessment - Last Documented Pain Intensity 0 Pain Scale Used 0-10 Pain Scale Intake and Output: Intake & Output 03/05/17 03/06/17 03/07/17 03/08/17 06:59 06:59 06:59 06:59 Intake Total 917 1975 1785 Output Total 720 681 9528 Balance 297 1625 735 Weight 83.3 kg 83.325 kg Lab Results: Lab Results-Last 24 Hours 03/07/17 03/07/17 Range/Units 05:10 05:10 WBC 16.9 H (4.0-10.5) K/mm3 RBC 4.60 (4.1-5.6) M/mm3 Hgb 12.5 (12.5-18.0) gm/dl Hct 39.6 L (42-50) % MCV 86.1 (78-100) fl MCH 27.2 (26-32) pg MCHC 31.6 L (32-36) g/dl RDW 13.8 (11.5-14.0) % Plt Count 216 (150-450) K/mm3 MPV 11.8 H (6-9.5) fl Segmented Neutrophils 81 H (36.-66.) % Band Neutrophils 1 (0.0-2.0) % Lymphocytes (Manual) 16 L (24-44) % Monocytes (Manual) 2 (0.0-12.0) % Differential Comment NORMAL Platelet Estimate NORMAL (NORMAL) Sodium 138 (136-145) mEq/L Potassium 3.5 (3.5-5.1) mEq/L Chloride 103 (98-107) mEq/L Carbon Dioxide 25.4 (21-32) mEq/L Anion Gap 13.0 (5-15) MEQ/L BUN 25 H (9-20) mg/dL Creatinine 1.40 H (0.55-1.30) mg/dl Estimated GFR 54 ML/MIN Glucose 125 H (70-110) MG/DL Calcium 8.3 L (8.5-10.1) mg/dL Radiology Exams: Radiology Procedures Category Date Time Status ECHO W/2D AND DOPPLER [US] Routine Exams 03/07/17 08:00 Taken Multi-Disciplinary Progress Notes: Multi-Disciplinary Progress Notes 03/07/17 10:25 (created 03/07/17 10:52) Case Management Note by Rhiannon Polanco RETURN CALL FROM PT'S , PROVIDED SLIP FILLER WITH SOCIAL SECURITY NUMBER TO VERIFY MEDICARE BENEFITS. CALL TO BILLING OFFICE TO REPORT. SPOKE WITH XOCHILT FAY. Initialized on 03/07/17 10:52 - END OF NOTE 03/07/17 10:01 Case Management Note by Rhiannon Polanco LONG DISCUSSION WITH PT'S , VIA TELEPHONE, REGARDING PT'S NEEDS ON DISCHARGE. REPORTS THAT HE IS NORMALLY INDEPENDENT WITH ALL ADL'S. DOES NOT USE ANY TYPE OF DEVICE FOR ASSISTANCE. DISCUSSED THAT PT HAS BEEN REFUSING HIS MEDICATIONS, AND REPORTS THAT IT IS NOT UNUSUAL. REPORTS THAT HE HAS BEEN REFUSING HIS MEDICATIONS FOR THE LAST 6 1/2 YEARS. REPORTS THAT HIS DOCTORS UP [facility] STOPPED GIVING HIM RX'S BECAUSE HE HAS REFUSED MEDS SINCE HIS STROKE. PT SPEAKS VERY LITTLE SLOVENIAN AND IS HARD TO COMMUNICATE WITH. ALSO REPORTS THAT PT HAS MEDICARE PART A AND PART B, BUT HAS BEEN UNABLE TO LOCATE HIS MEDICARE CARD, AND IS UNSURE OF SOCIAL SECURITY NUMBER. REPORTS THAT SHE IS TRYING TO LOCATE PAPERWORK WITH HIS INFORMATION ON IT. PROVIDED WITH CASE MANAGEMENT CALL BACK NUMBER. AWAIT RETURN CALL FROM . DECLINED NEEDS FOR DISCHARGE. REPORTS THAT THEY ARE PLANNING FOR HIM TO RETURN HOME TO PRE EPISODIC LEVEL OF [facility]. Initialized on 03/07/17 10:01 - END OF NOTE Assessment/Plan (1) Paroxysmal atrial fibrillation Current Visit: Yes Status: Acute Assessment & Plan: Continue lovenox 1 mg/kg subcut bid until we can clarify what his insurance will cover or what he can afford as far as anticoagution goes to prevent a stroke. Continue with diltiazem to control rate if he goes into atrial fibrillation. Echo completed but not read yet. Dr. Rao has seen him and suggests anticoaguation. His reports he used to be on Xarelto but she is unsure what for and they asked the doctor to stop this after seeing TV advertisements about this. His condition is guarded and extremely poor if he does not take his medications when he goes home. Code(s): I48.0 - PAROXYSMAL ATRIAL FIBRILLATION (2) History of cerebrovascular accident (CVA) with residual deficit Current Visit: Yes Status: Acute Assessment & Plan: Will ask for hospice consult. He and his ex- are agreeable to this. Continue statin and he is on an fausto inhibitor now. Code(s): I69.30 - UNSPECIFIED SEQUELAE OF CEREBRAL INFARCTION (3) COPD with exacerbation Current Visit: Yes Status: Acute Assessment & Plan: Continue to wean prednisone. Continue IV levofloxacin Day 3. Code(s): J44.1 - CHRONIC OBSTRUCTIVE PULMONARY DISEASE W (ACUTE) EXACERBATION (4) Leukocytosis Current Visit: Yes Status: Acute Assessment & Plan: Improved with decrease in steroid. Code(s): D72.829 - ELEVATED WHITE BLOOD CELL COUNT, UNSPECIFIED (5) Hypertension Current Visit: Yes Status: Acute Assessment & Plan: Currently well controlled. Code(s): I10 - ESSENTIAL (PRIMARY) HYPERTENSION (6) Depression Current Visit: Yes Status: Acute Assessment & Plan: Cleared by [facility] but may still have some underlying mood disorder given his equivocal answer to whether or not he feels hopeless. Code(s): F32.9 - MAJOR DEPRESSIVE DISORDER, SINGLE EPISODE, UNSPECIFIED
[2017-03-07] MEDS: LIPITOR 40MG PO SCH ×2 (23:35→23:42)
[2017-03-08 08:03] LABS: Hematocrit 36.6 % (42-50); Hemoglobin 11.8 gm/dl (12.5-18.0); Mean Cell Volume 85.7 fl (78-100); Mean Corpuscular Hemoglobin 27.6 pg (26-32); Mean Corpuscular Hgb Concent. 32.2 g/dl (32-36); Mean Platelet Volume 9.1 fl (6-9.5); Platelet Count 246 K/mm3 (150-450); Red Blood Count 4.27 M/mm3 (4.1-5.6); Red Cell Distribution Width 13.6 % (11.5-14.0); White Blood Count 10.7 K/mm3 (4.0-10.5)
[2017-03-08 08:21] LABS: ANION GAP 11.5 MEQ/L (5-15); Calcium 8.1 mg/dL (8.5-10.1); Carbon Dioxide 24.5 mEq/L (21-32); Creatinine 1 1.31 mg/dl (0.55-1.30); Potassium 3.8 mEq/L (3.5-5.1)
[2017-03-08] MEDS ORDERED: Coumadin 10 MG PO STA (08:58)
[2017-03-08] MEDS: Zestril 20 MG PO SCH (10:05)
[2017-03-08] MEDS: Cardizem CD 180 MG PO SCH (10:05)
[2017-03-08] MEDS: ENOXAPARIN SODIUM SQ SCH (10:05)
[2017-03-08] MEDS: LEVOFLOXACIN 750MG/150ML D5W 750 MG/150 ML BAG IV SCH (10:05)
[2017-03-08] MEDS: ECOTRIN 81 MG PO SCH (10:05)
[2017-03-08] MEDS: hydroDIURIL 25 MG PO SCH (10:05)
[2017-03-08 11:40] VITALS: BP 148/79; PULSE 67; O2SAT 96
--- NOTE | 2017-03-08 14:16 | PCM.DCORD ---
- Discharge Discharge Date: 03/08/17 Disposition: Home, Self-Care Condition: Fair Prescriptions: New Warfarin Sodium 5 mg [Coumadin 5 MG] 5 mg PO DAILY@1800 #30 tablet Diltiazem HCl [Diltiazem 24Hr Cd] 180 mg PO DAILY #30 cap.er.24h Aspirin EC 81 mg [Ecotrin 81 mg] 81 mg PO DAILY #30 tablet.ec Atorvastatin Calcium [Lipitor 40Mg] 80 mg PO HS #30 tablet Lisinopril/Hydrochlorothiazide [Lisinopril-Hctz 20-25 mg Tab] 1 each PO QAM # 30 tablet Instructions: Atrial Fibrillation, Acute Bronchitis Additional Instructions: [facility] WILL FOLLOW ON DISCHARGE. Check INR on 03/14/17. Follow up with: SUMA SIFUENTES [ACTIVE STAFF] - 03/15/17 2:45 pm Forms: Patient Portal Information
--- NOTE | 2017-03-09 09:02 | ECHO ---
Transthoracic echocardiographic examination and color Doppler was done on 03/07/2017. INDICATION: New onset of atrial fibrillation. IMPRESSION: 1) NO REGIONAL WALL MOTION ABNORMALITY. ESTIMATED GLOBAL LEFT VENTRICULAR EJECTION FRACTION 60%. 2) MODERRATE MITRAL REGURGITATION. 3) MILD TRICUSPID REGURGITATION. RIGHT VENTRICULAR SYSTOLIC PRESSURE OF 29 MM OF MERCURY. 4) TRACE PULMONIC INSUFFICIENCY. 5) LEFT ATRIAL ENLARGEMENT. 6) TRACE PERICARDIAL EFFUSION. The left ventricle is visualized and demonstrated adequate motion of all the segments. Estimated global left ventricular ejection fraction 60%. The left ventricular thickness is normal. The mitral valve is seen and this opens adequately. There is moderate mitral regurgitation. The left atrium is enlarged. The aortic valve opens adequately. The right side chambers are normal. There is mild tricuspid regurgitation. The right ventricular systolic pressure of 29 mm of Mercury. There is also trace pericardial effusion.
[2017-03-09] MEDS ORDERED: Coumadin 5 MG PO SCH (18:00)
--- NOTE | 2017-03-10 09:14 | DS ---
DISCHARGE DIAGNOSES: 1) PAROXYSMAL ATRIAL FIBRILLATION. 2) HISTORY OF CEREBROVASCULAR ACCIDENT WITH RESIDUAL DEFECT. 3) CHRONIC OBSTRUCTIVE PULMONARY DISEASE WITH EXACERBATION. 4) LEUKOCYTOSIS. 5) HYPOTENSION. 6) DEPRESSION. DISCHARGE PHYSICAL EXAMINATION: VITALS: Temperature current 98.3F, temperature max 98.3F, heart rate 57 to 68, respiratory rate 16 to 20, blood pressure 126 to 160 over 59 to 79. Oxygen saturation 94 to 97% on room air. GENERAL: The patient is lying in bed and in no acute distress. He is aphasic. He nods his head Yes or No when he answered questions. EXTREMITIES: His arm and leg are flaccid. CVS: His heart had a regular rate and rhythm. No murmurs, gallops or rubs are appreciated. CHEST: Clear to auscultation bilaterally. No crackles or wheezes were appreciated. ABDOMEN: Soft, nontender, nondistended with normal bowel sounds. EXTREMITIES: No clubbing, cyanosis or edema. SKIN: Warm, dry and intact. HOSPITAL COURSE: 1) PAROXYSMAL ATRIAL FIBRILLATION: Shortly after he was admitted to the hospital he went into atrial fibrillation with rapid ventricular response and at that time was transferred to ICU and started on Cardizem drip, this was able to be changed to oral diltiazem. The patient stayed in sinus rhythm. Dr. Rao was consulted and saw him. We have given him during his hospitalization Lovenox 1 mg/kg every 12 hours and then this was changed to Coumadin. I discussed with Dr. Rao. He did not feel like we needed to bridge this with Lovenox and the reason why we had waited was because we were not sure what his coverage for prescriptions was going to be. He will need to have his international normalized ratio checked this coming Tuesday. He went home with Hospice so hopefully they can help with this. 2) HISTORY OF CVA WITH RESIDUAL DEFECT: He is aphasic and has paralysis of his right side. Please see the progress note on the day before his discharge. We asked for Hospice consult. His family which is his ex- and he were agreeable to this. He was also continued on a statin and was started on an ROXY inhibitor that also helped with controlling his blood pressure. He was discharged on a statin to try help decrease his risk of further stroke as well as 81 mg aspirin. 3) CHRONIC OBSTRUCTIVE PULMONARY DISEASE WITH EXACERBATION: While he was in the hospital he was given levofloxacin which he finished five days of as well as IV steroids and then prednisone. He finished enough days of both that he did not need to be discharged on these and his lung exam had improved. 4) LEUKOCYTOSIS: This was secondary to the steroid and improved as the steroid was decreased. 5) HYPOTENSION: His blood pressure was controlled on lisinopril 20 mg p.o. daily, hydrochlorothiazide 25 mg p.o. daily, diltiazem CD 180 mg p.o. daily. He was discharged on these. I did combine the lisinopril hydrochlorothiazide in a combination tablet to decrease the number of pills he has to take. 6) DEPRESSION: I feel that there may be some underlying depression here but [facility] did see him and did not think he was depressed. He was not started on any medications as he prefers in general not to take medication. DISCHARGE MEDICATIONS: Coumadin 5 mg p.o. daily in the evening, diltiazem CD 180 mg p.o. daily, aspirin 81 mg p.o. daily, atorvastatin 80 mg p.o. q.h.s., lisinopril/hydrochlorothiazide 20/25 mg 1 tablet p.o. q.a.m. FOLLOW UP: He will follow up with me on 03/15/2017 in the clinic. DISPOSITION: The patient was discharged to home in guarded condition. He often refused his medications during his hospital visit. [facility] was consulted and they are planning on following him at discharge.
== END 2017-03-08 15:00 | disposition hospice, home (50) | DRG 309 ==
LOC: ED 08:52 → MED SURG 13:00 → ICU 16:38 → OBSVTOIN 16:38 → MED SURG 03-06 07:39
PROVIDERS: ADMIT Internal Medicine; ATTEND Internal Medicine
DX: J45.909 Unspecified asthma, uncomplicated (principal); J44.9 Chronic obstructive pulmonary disease, unspecified; R53.1 Weakness; Z86.73 Personal history of transient ischemic attack (TIA), and cerebral infarction without residual deficits; Z87.891 Personal history of nicotine dependence; I48.0 Paroxysmal atrial fibrillation; J44.1 Chronic obstructive pulmonary disease with (acute) exacerbation; Z79.01 Long term (current) use of anticoagulants; I95.89 Other hypotension; I69.30 Unspecified sequelae of cerebral infarction; D72.829 Elevated white blood cell count, unspecified; N28.9 Disorder of kidney and ureter, unspecified; F32.9 Major depressive disorder, single episode, unspecified; Z79.899 Other long term (current) drug therapy; I10 Essential (primary) hypertension; I69.920 Aphasia following unspecified cerebrovascular disease
CPT/HCPCS: 36000; 36415; 71045; 80048; 80053; 80061; 81000; 83605; 83721; 84443; 84484; 85025; 87040; 87086; 90791; 93005; 93306; 94640; 94760; 99285; J0360; J1650; J1956; J2930; P9612; Q3014; A9270-GY

== ENCOUNTER 2018-03-01 19:54 | Emergency (ER) | payer MEDICARE ==
--- NOTE | 2018-03-01 20:45 | ERPHSYRPT ---
- History of Present Illness Time Seen by Provider: 03/01/18 20:00 Source: patient, EMS Exam Limitations: clinical condition Patient Subjective Stated Complaint: pt has had increasing shortness of breath for last week. pt poor historian d/t difficulty communicating since stroke Triage Nursing Assessment: pt awake and alert, slurred speech d/t previous cva, answers questions. respirations nonlabored. exp wheezing noted to rt throughout , coarse lung sounds bilat. Physician History: 67 y/o white male recently released from [facility] services. since this release, pt and family have verified he has been doing well and not on any medications. pt has h/o cva with residual speech difficuties and right side weakness. pt also has h/o chronic atrial fibrillation, copd and htn. over past few days, pt has had a cough and fever. pt arrives by ems and received a duoneb tx and an iv dose of methylprednisolone. pt denies cp and denies abd pain. Timing/Duration: day(s) (past few days) Activities at Onset: none Severity of Dyspnea-Max: moderate Severity of Dyspnea-Current: moderate Possible Cause: occasional episodes Modifying Factors: Improves With: coughing, other (fever) Associated Symptoms: cough, fever Allergies/Adverse Reactions: Penicillins Allergy (Verified 03/01/18 20:23) Hx Tetanus, Diphtheria Vaccination/Date Given: Yes Hx Influenza Vaccination/Date Given: No Hx Pneumococcal Vaccination/Date Given: No Immunizations Up to Date: Yes - Review of Systems Constitutional: Fever Eyes: No Symptoms Ears, Nose, & Throat: No Symptoms Respiratory: Cough, Dyspnea, Wheezing Cardiac: No Symptoms, No Chest Pain, No Palpitations, No Syncope Abdominal/Gastrointestinal: No Symptoms, No Abdominal Pain, No Nausea, No Vomiting, No Diarrhea Genitourinary Symptoms: No Symptoms, No Dysuria, No Frequency, No Hematuria Musculoskeletal: No Symptoms Skin: No Symptoms Neurological: No Symptoms Psychological: No Symptoms Endocrine: No Symptoms Hematologic/Lymphatic: No Symptoms Immunological/Allergic: No Symptoms All Other Systems: Reviewed and Negative - Past Medical History Pertinent Past Medical History: Yes Neurological History: Stroke ENT History: No Pertinent History Cardiac History: Hypertension, Other (chronic a fib) Respiratory History: COPD Endocrine Medical History: No Pertinent History Musculoskeletal History: No Pertinent History GI Medical History: No Pertinent History History: No Pertinent History, Other Psycho-Social History: No Pertinent History Male Reproductive Disorders: No Pertinent History Other Medical History: abd aneurysm - Past Surgical History Past Surgical History: Yes Neuro Surgical History: No Pertinent History Cardiac: No Pertinent History Respiratory: No Pertinent History Gastrointestinal: Other Genitourinary: No Pertinent History Musculoskeletal: No Pertinent History Male Surgical History: No Pertinent History Other Surgical History: abd aneurysm - Social History Smoking Status: Former smoker Exposure to second hand smoke: No Drug Use: none Patient Lives Alone: No - Nursing Vital Signs Nursing Vital Signs: Initial Vital Signs Temperature 98.4 F 03/01/18 20:07 Pulse Rate 111 H 03/01/18 20:07 Respiratory Rate 22 03/01/18 20:07 Blood Pressure 151/88 03/01/18 20:07 O2 Sat by Pulse Oximetry 97 03/01/18 20:07 Pain Scale Pain Intensity 0 - Physical Exam General Appearance: moderate distress, alert, anxiety Eye Exam: PERRL/EOMI, eyes nml inspection Ears, Nose, Throat Exam: hearing grossly normal, normal ENT inspection Neck Exam: normal inspection, non-tender, supple, full range of motion Respiratory Exam: respiratory distress (mild), airway intact, wheezing (mild bilat expiratory), No chest tenderness Cardiovascular/Chest Exam: normal heart sounds, regular rate/rhythm Abdominal/Gastrointestinal Exam: soft, normal bowel sounds, No tenderness, No guarding Rectal Exam: not done Extremity Exam: non-tender, normal range of motion Neurologic Exam: alert, oriented x 3, cooperative, motor weakness (right side chronic), dysarthria (chronic) Skin Exam: normal color, warm Lymphatic Exam: adenopathy SpO2 Interpretation: normal SpO2: 97 Oxygen Delivery: Nasal Cannula - Course Nursing assessment & vital signs reviewed: Yes EKG Interpreted by Me: RATE (103), Sinus Tach, NORMAL AXIS, NORMAL INTERVALS, NORMAL QRS, Non-specific ST Changes, Other (comparison ekg dated 03/04/17- resolution of a fib.) Ordered Tests: Active Orders 24 hr Category Date Time Status [place] STAT Care 03/01/18 20:13 Active EKG-ER Only STAT Care 03/01/18 20:12 Active IV Insertion STAT Care 03/01/18 20:12 Active Oxygen-ED Only NASAL CANNULA 4 lpm Care 03/01/18 20:12 Active Pulse Oximetry (ED) STAT Care 03/01/18 20:12 Active CHEST 1 VIEW (PORTABLE) Stat Exams 03/01/18 20:12 Taken CHEST WITH CONTRAST [CT] Stat Exams 03/01/18 21:34 Taken CBC W DIFF Stat Lab 03/01/18 21:06 Completed CMP Stat Lab 03/01/18 21:06 Completed D-DIMER QUANTITATION Stat Lab 03/01/18 21:06 Completed Lactic Acid Stat Lab 03/01/18 21:05 Completed NT PRO BNP Stat Lab 03/01/18 21:06 Completed PROTIME WITH INR Stat Lab 03/01/18 21:06 Completed TROPONIN Q3H Lab 03/01/18 21:06 Completed TROPONIN Q3H Lab 03/01/18 23:12 Completed TROPONIN Q3H Lab 03/02/18 02:15 Ordered TROPONIN Q3H Lab 03/02/18 05:15 Ordered TROPONIN Q3H Lab 03/02/18 08:15 Ordered Lab/Rad Data: Laboratory Result Diagrams 03/01/18 21:06 03/01/18 21:06 Laboratory Results 03/01/18 03/01/18 03/01/18 Range/Units 23:12 21:06 21:06 WBC (4.0-10.5) K/mm3 RBC (4.1-5.6) M/mm3 Hgb (12.5-18.0) gm/dl Hct (42-50) % MCV (78-100) fl MCH (26-32) pg MCHC (32-36) g/dl RDW (11.5-14.0) % Plt Count (150-450) K/mm3 MPV (6-9.5) fl Gran % (36.0-66.0) % Eos # (Auto) (0-0.5) Absolute Lymphs (auto) (1.0-4.6) Absolute Monos (auto) (0.0-1.3) Lymphocytes % (24.0-44.0) % Monocytes % (0.0-12.0) % Eosinophils % (0.00-5.0) % Basophils % (0.0-0.4) % Absolute Granulocytes (1.4-6.9) Basophils # (0-0.4) PT 12.4 (8.83-12.87) SECONDS INR 1.07 (0.8-3.0) D-Dimer 1403 H* (215-500) ng/mL Sodium (137-145) mmol/L Potassium (3.5-5.1) mmol/L Chloride (98-107) mmol/L Carbon Dioxide (22-30) mmol/L Anion Gap (5-15) MEQ/L BUN (9-20) mg/dL Creatinine (0.66-1.25) mg/dL Estimated GFR ML/MIN Glucose (74-106) mg/dL Lactic Acid (0.4-2.0) Calcium (8.4-10.2) mg/dL Total Bilirubin (0.2-1.3) mg/dL AST (17-59) U/L ALT (0-50) U/L Alkaline Phosphatase (38-126) U/L Troponin I < 0.012 < 0.012 (0.000-0.034) ng/mL NT-Pro-B Natriuret Pep (0-900) pg/mL Serum Total Protein (6.3-8.2) g/dL Albumin (3.5-5.0) g/dL Influenza Type A Ag (NEGATIVE) Influenza Type B Ag (NEGATIVE) RSV (PCR) (Negative) Slides for Path Review 03/01/18 03/01/18 03/01/18 Range/Units 21:06 21:06 21:05 WBC 10.0 (4.0-10.5) K/mm3 RBC 4.81 (4.1-5.6) M/mm3 Hgb 13.1 (12.5-18.0) gm/dl Hct 41.4 L (42-50) % MCV 86.1 (78-100) fl MCH 27.2 (26-32) pg MCHC 31.6 L (32-36) g/dl RDW 14.6 H (11.5-14.0) % Plt Count 84 L (150-450) K/mm3 MPV 12.4 H (6-9.5) fl Gran % 76.3 H (36.0-66.0) % Eos # (Auto) 0.17 (0-0.5) Absolute Lymphs (auto) 1.83 (1.0-4.6) Absolute Monos (auto) 0.34 (0.0-1.3) Lymphocytes % 18.4 L (24.0-44.0) % Monocytes % 3.4 (0.0-12.0) % Eosinophils % 1.7 (0.00-5.0) % Basophils % 0.2 (0.0-0.4) % Absolute Granulocytes 7.61 H (1.4-6.9) Basophils # 0.02 (0-0.4) PT (8.83-12.87) SECONDS INR (0.8-3.0) D-Dimer (215-500) ng/mL Sodium 141 (137-145) mmol/L Potassium 3.4 L (3.5-5.1) mmol/L Chloride 107 (98-107) mmol/L Carbon Dioxide 23 (22-30) mmol/L Anion Gap 14.3 (5-15) MEQ/L BUN 15 (9-20) mg/dL Creatinine 1.25 (0.66-1.25) mg/dL Estimated GFR > 60.0 ML/MIN Glucose 164 H (74-106) mg/dL Lactic Acid 1.5 (0.4-2.0) Calcium 8.7 (8.4-10.2) mg/dL Total Bilirubin 0.40 (0.2-1.3) mg/dL AST 26 (17-59) U/L ALT 24 (0-50) U/L Alkaline Phosphatase 134 H (38-126) U/L Troponin I (0.000-0.034) ng/mL NT-Pro-B Natriuret Pep 841 (0-900) pg/mL Serum Total Protein 8.1 (6.3-8.2) g/dL Albumin 4.1 (3.5-5.0) g/dL Influenza Type A Ag (NEGATIVE) Influenza Type B Ag (NEGATIVE) RSV (PCR) (Negative) Slides for Path Review YES 03/01/18 Range/Units 20:45 WBC (4.0-10.5) K/mm3 RBC (4.1-5.6) M/mm3 Hgb (12.5-18.0) gm/dl Hct (42-50) % MCV (78-100) fl MCH (26-32) pg MCHC (32-36) g/dl RDW (11.5-14.0) % Plt Count (150-450) K/mm3 MPV (6-9.5) fl Gran % (36.0-66.0) % Eos # (Auto) (0-0.5) Absolute Lymphs (auto) (1.0-4.6) Absolute Monos (auto) (0.0-1.3) Lymphocytes % (24.0-44.0) % Monocytes % (0.0-12.0) % Eosinophils % (0.00-5.0) % Basophils % (0.0-0.4) % Absolute Granulocytes (1.4-6.9) Basophils # (0-0.4) PT (8.83-12.87) SECONDS INR (0.8-3.0) D-Dimer (215-500) ng/mL Sodium (137-145) mmol/L Potassium (3.5-5.1) mmol/L Chloride (98-107) mmol/L Carbon Dioxide (22-30) mmol/L Anion Gap (5-15) MEQ/L BUN (9-20) mg/dL Creatinine (0.66-1.25) mg/dL Estimated GFR ML/MIN Glucose (74-106) mg/dL Lactic Acid (0.4-2.0) Calcium (8.4-10.2) mg/dL Total Bilirubin (0.2-1.3) mg/dL AST (17-59) U/L ALT (0-50) U/L Alkaline Phosphatase (38-126) U/L Troponin I (0.000-0.034) ng/mL NT-Pro-B Natriuret Pep (0-900) pg/mL Serum Total Protein (6.3-8.2) g/dL Albumin (3.5-5.0) g/dL Influenza Type A Ag NEGATIVE (NEGATIVE) Influenza Type B Ag NEGATIVE (NEGATIVE) RSV (PCR) NEGATIVE (Negative) Slides for Path Review - Progress Progress: improved, re-examined Air Movement: good Progress Note: 03/02/18 01:08 cxr-no acute process. ct chest-no large pulm emboli, 7mm left pulmonary nodule, stenosis of bilat renal arteries. discussed with pt. because pt has a cough, had a fever at home and has h/o recurrent bronchitis, i will prescribe antibx. Blood Culture(s) Obtained: Yes Antibiotics given: Yes Counseled pt/family regarding: lab results, diagnosis, need for follow-up, rad results - Departure Time of Disposition: 01:12 Departure Disposition: Home Clinical Impression: Cough, Pulmonary nodule, Renal artery stenosis Condition: Stable Critical Care Time: No Referrals: DOCTOR,NO FAMILY [Primary Care Provider] - Additional Instructions: drink plenty of fluids. follow up with your primary physician tomorrow for further management of all your medications and chronic illnesses including follow up on pulmonary nodule to schedule a ct scan of chest and further evaluation of renal artery stenosis. Prescriptions: Azithromycin 250 mg [Zithromax 250 MG TABLET] 250 mg PO ZPACK #6 tablet Prednisone 10 mg [Deltasone 10 mg] 10 mg PO TID #12 tablet
[2018-03-01 21:12] LABS: BASOPHIL % 0.2 % (0.0-0.4); Basophil (Absolute #) 0.02 (0-0.4); Eosinophil % 1.7 % (0.00-5.0); Eosinophil (Absolute #) 0.17 (0-0.5); Granulocytes % 76.3 % (36.0-66.0); Hematocrit 41.4 % (42-50); Hemoglobin 13.1 gm/dl (12.5-18.0); Lymphocyte (Absolute #) 1.83 (1.0-4.6); Lymphocytes % 18.4 % (24.0-44.0); Mean Cell Volume 86.1 fl (78-100); Mean Corpuscular Hemoglobin 27.2 pg (26-32); Mean Corpuscular Hgb Concent. 31.6 g/dl (32-36); Mean Platelet Volume 12.4 fl (6-9.5); Monocyte (Absolute #) 0.34 (0.0-1.3); Monocytes % 3.4 % (0.0-12.0); Platelet Count 84 K/mm3 (150-450); Red Blood Count 4.81 M/mm3 (4.1-5.6); Red Cell Distribution Width 14.6 % (11.5-14.0)
[2018-03-01 21:27] LABS: INR 1.07 (0.8-3.0); PROTIME 12.4 SECONDS (8.83-12.87)
[2018-03-01 21:37] LABS: INFLUENZA A NEGATIVE (NEGATIVE); INFLUENZA B NEGATIVE (NEGATIVE); RESPIRATORY SYNCTIAL VIRUS NEGATIVE (Negative)
[2018-03-01 21:38] LABS: ALBUMIN 4.1 g/dL (3.5-5.0); ALKALINE PHOSPHATASE 134 U/L (38-126); ANION GAP 14.3 MEQ/L (5-15); BLOOD UREA NITROGEN 15 mg/dL (9-20); CHLORIDE 107 mmol/L (98-107); Calcium 8.7 mg/dL (8.4-10.2); Carbon Dioxide 23 mmol/L (22-30); Creatinine 1 1.25 mg/dL (0.66-1.25); Glucose 164 mg/dL (74-106); NT PRO BNP 841 pg/mL (0-900); Potassium 3.4 mmol/L (3.5-5.1); SGOT/AST 26 U/L (17-59); SGPT/ALT 24 U/L (0-50); SODIUM 141 mmol/L (137-145); Total Protein 8.1 g/dL (6.3-8.2)
[2018-03-01 22:45] LABS: Slide Review 1 YES
[2018-03-02] MEDS ORDERED: ROCEPHIN 1 Gm-D5w 50 ml Bag** 1 G/50 ML IVPB IV STA (01:17)
[2018-03-02] MEDS ORDERED: ROCEPHIN 1 Gm-D5w 50 ml Bag** 1 G/50 ML IVPB IV ONE (01:26)
[2018-03-02 02:42] VITALS: BP 124/73; PULSE 72; O2SAT 99
--- NOTE | 2018-03-02 08:42 | XRAY ---
Indication: Fever and short of breath. Comparison: March 04, 2017. Portable chest demonstrates minimal left base atelectasis/scarring. Remaining heart and lungs unremarkable. Stable left hemidiaphragm elevation. Bony thorax intact again with mild degenerative changes. Impression: Left base atelectasis/scarring. Negative for acute pneumonic process or CHF.
--- NOTE | 2018-03-02 08:44 | XRAY ---
Indication: Fever, cough, short of breath, wheezing, and elevated d-dimer. Multiple contiguous axial images obtained through the chest using 80 cc Isovue 370 contrast and PE protocol. Comparison: None There is good opacification of the pulmonary arteries to including lobar and segmental branches. Mild respiration artifact limits evaluation of the more distal lobar and segmental branches. No central pulmonary embolus. Heart is not enlarged. Aorta is moderately arteriosclerotic without aneurysm/dissection. No pathologic mediastinal/hilar lymphadenopathy. Examination of the lung parenchyma demonstrates mild bilateral dependent atelectasis, right apical pleural-parenchymal scarring, and medial lower lobe subsegmental atelectasis/scarring left greater than right. 6 mm noncalcified nodule in the superior left lower lobe. No infiltrate or effusion. Bony thorax intact with minimal degenerative changes throughout the spine. Limited upper abdomen demonstrates mild fatty liver, distended gallbladder, right renal scarring and partially visualized distal aortic stent graft. Impression: 1. Pulmonary embolus evaluation limited by respiration artifact. No central pulmonary embolus. 2. Scattered atelectasis/scarring. No acute cardiopulmonary abnormalities. 3. Indeterminant 6 mm left lower lobe noncalcified nodule. Comparison studies would be of benefit if performed elsewhere. If not, recommend follow-up per Fleischner guidelines. 4. Incidental fatty liver, right renal scarring, distended gallbladder, and scattered arteriosclerotic disease. Comment: Preliminary interpretation was made by [facility]. No critical discrepancy. CT DI 23.65
== END 2018-03-02 03:02 | disposition home or self-care (01) ==
LOC: ED 19:54
DX: R05 Cough (principal); R91.1 Solitary pulmonary nodule; I70.1 Atherosclerosis of renal artery; I69.828 Other speech and language deficits following other cerebrovascular disease; I69.851 Hemiplegia and hemiparesis following other cerebrovascular disease affecting right dominant side; J44.9 Chronic obstructive pulmonary disease, unspecified
CPT/HCPCS: 36000; 36415; 71045; 71260; 80053; 83605; 83880; 84484; 85025; 85379; 85610; 87631; 93005; 93041; 96365; 99284; J0696

== ENCOUNTER 2018-04-23 03:02 | Emergency (ER) | payer MEDICARE ==
[2018-04-23] MEDS ORDERED: Sodium Chloride 0.9% 1000 ML 1,000 ML IV STA (03:09)
[2018-04-23] MEDS ORDERED: Ntg 0.2MG/Ml in D5W GLASS*** 250 ML IV PRN (03:16)
[2018-04-23] MEDS ORDERED: BABY ASPIRIN 81 MG CHEW PO ONE (03:16)
[2018-04-23] MEDS ORDERED: Lasix 40 MG/4 ML IV ONE (03:17)
[2018-04-23] MEDS ORDERED: Ntg 0.2MG/Ml in D5W GLASS*** 250 ML IV ONE (03:23)
[2018-04-23] MEDS ORDERED: Lasix 40 MG/4 ML ONE (03:24)
[2018-04-23] MEDS ORDERED: ASPIRIN 600 MG ONE (03:32)
--- NOTE | 2018-04-23 03:35 | ERPHSYRPT ---
- History of Present Illness Time Seen by Provider: 04/23/18 03:18 Historian: patient Exam Limitations: no limitations Physician History: This is a 67-year-old white male with history of atrial fibrillation, COPD, high blood pressure, abdominal aortic aneurysm which was repaired with stent. Patient arrives with complaint of epigastric pain symptoms since yesterday apparently became extremely severe this evening and the medics were summoned. On the medics arrival to the patient's house, the patient was noted to be diaphoretic tachycardic and had an elevated blood pressure he was started on IV normal saline. On arrival to the emergencvy room , the patient is noted to have ST elevations on his EKG in leads V1 through V5 tachycardia at 1 23 bpm and normal axis He states he has had some vomiting he also has had some nauseousness initially patient could not tell me how long his pain had been persisting information was obtained by nurses through the patient's family he does state that he is short of breath. Patient does appear to be having some shortness of breath he has some audible wet rales when listening to his lungs. Past medical history includes atrial fibrillation, COPD, high blood pressure, abdominal aneurysm past surgical history includes abdominal aneurysm repair apparently with a stent patient also has a history of a CVA he does have some slurry speech which is chronic secondary to that Social history patient is a former smoker . Timing/Duration: other (epigastric pain since yesterday, worse today) Activities at Onset: none Quality: other (patient not able to charicterize) Location: other (Epigastric) Chest Pain Radiation: no radiation Severity of Pain-Max: moderate Severity of Pain-Current: moderate (as far as) Modifying Factors: Improves With: other (patient states he's been vomiting and is short of breath) Associated Symptoms: nausea, vomiting, abdominal pain (epigastric pain), shortness of breath, cough, diaphoresis, No palpitations, No heartburn, No hurts to breathe, No chills, No fever, No fatigue, No weakness, No swelling/ lump in chest, No syncope, No rash, No headache, No dizziness Nitro Today/Relief: provided by ED (nitroglycerin drip ordered in the emergenc milliunits for her nitr) Aspirin Treatment Today: 81 mg x 4 ( positives they 5 or 10 ), provided by ED Allergies/Adverse Reactions: Penicillins Allergy (Verified 03/01/18 20:23) Hx Tetanus, Diphtheria Vaccination/Date Given: Yes Hx Influenza Vaccination/Date Given: No Hx Pneumococcal Vaccination/Date Given: No - Review of Systems Constitutional: No Fever, No Chills Eyes: No Symptoms Ears, Nose, & Throat: No Symptoms Respiratory: Cough, Dyspnea Cardiac: No Chest Pain, No Edema, No Syncope Abdominal/Gastrointestinal: Abdominal Pain (epigastric pain ), Nausea, Vomiting , No Diarrhea, No Constipation, No Hematemesis, No Hematochezia, No Melena, No Dysphagia, No Appetite Changes Genitourinary Symptoms: No Dysuria Musculoskeletal: No Back Pain, No Neck Pain Skin: No Symptoms, No Rash Neurological: No Dizziness, No Focal Weakness, No Sensory Changes Psychological: No Symptoms Endocrine: No Symptoms All Other Systems: Reviewed and Negative - Past Medical History Pertinent Past Medical History: Yes Neurological History: Stroke ENT History: No Pertinent History Cardiac History: Hypertension, Other (chronic a fib) Respiratory History: COPD Endocrine Medical History: No Pertinent History Musculoskeletal History: No Pertinent History GI Medical History: No Pertinent History History: No Pertinent History, Other Psycho-Social History: No Pertinent History Male Reproductive Disorders: No Pertinent History Other Medical History: abd aneurysm - Past Surgical History Past Surgical History: Yes Neuro Surgical History: No Pertinent History Cardiac: No Pertinent History Respiratory: No Pertinent History Gastrointestinal: Other Genitourinary: No Pertinent History Musculoskeletal: No Pertinent History Male Surgical History: No Pertinent History Other Surgical History: abd aneurysm - Social History Smoking Status: Former smoker Exposure to second hand smoke: No Drug Use: none Patient Lives Alone: No - Nursing Vital Signs Nursing Vital Signs: Initial Vital Signs Temperature 97.7 F 04/23/18 03:08 Pulse Rate 125 H 04/23/18 03:08 Respiratory Rate 22 04/23/18 03:08 Blood Pressure 178/114 04/23/18 03:08 O2 Sat by Pulse Oximetry 88 L 04/23/18 03:08 - Physical Exam General Appearance: moderate distress, alert, other (well-developed [place] moderate distress , slurry speech(chronic)) Neck Exam: normal inspection, non-tender, supple, full range of motion Respiratory Exam: rhonchi, other (bilateral wet rales) Cardiovascular Exam: regular rate/rhythm, tachycardia Gastrointestinal/Abdomen Exam: soft, No tenderness, No mass Back Exam: normal inspection, No CVA tenderness, No vertebral tenderness Extremity Exam: normal inspection, normal range of motion Neurologic Exam: alert, oriented x 3, cooperative, color sprayer II-XII nml as tested, normal mood/affect, sensation nml, No motor deficits Skin Exam: normal color, warm, dry SpO2 Interpretation: borderline oxygenation (88%) - Course Nursing assessment & vital signs reviewed: Yes EKG Interpreted by Me: RATE (123 bpm), NORMAL AXIS, Other (EKG atrial fibrillation, tachycardic, 123 beats per minute, normal axis, ST elevation leadsV2-V5, acute Mi) - Radiology Exams Chest X-ray Interpretation: Interpreted by me (bilateral increased lungmarkings, chf) Ordered Tests: Active Orders 24 hr Category Date Time Status EKG-ER Only STAT Care 04/23/18 03:09 Active IV Insertion STAT Care 04/23/18 03:09 Active CHEST 1 VIEW (PORTABLE) Stat Exams 04/23/18 03:11 Taken AMYLASE Stat Lab 04/23/18 03:33 Completed CBC W DIFF Stat Lab 04/23/18 03:33 Completed CMP Stat Lab 04/23/18 03:33 Completed LIPASE Stat Lab 04/23/18 03:33 Completed Manual Differential NC Stat Lab 04/23/18 03:33 Completed NT PRO BNP Routine Lab 04/23/18 03:33 Completed TROPONIN Q3H Lab 04/23/18 03:33 Completed Medication Summary Discontinued Medications Generic Name Dose Route Start Last Admin Trade Name Freq PRN Reason Stop Dose Admin Aspirin 324 mg 04/23/18 03:16 04/23/18 03:50 Baby Aspirin 81 Mg Chew PO 04/23/18 03:17 Not Given STAT ONE Aspirin Confirm 04/23/18 03:32 Aspirin 600 Mg Administered 04/23/18 03:33 Dose 600 mg .ROUTE .STK-MED ONE Aspirin 324 mg 04/23/18 03:53 04/23/18 03:55 Aspirin 600 Mg FL 04/23/18 03:54 324 mg STAT ONE Administration Furosemide 40 mg 04/23/18 03:17 04/23/18 03:27 Lasix 40 Mg/4 Ml IV 04/23/18 03:18 40 mg STAT ONE Administration Furosemide Confirm 04/23/18 03:24 Lasix 40 Mg/4 Ml Administered 04/23/18 03:25 Dose 40 mg .ROUTE .STK-MED ONE Sodium Chloride 1,000 mls @ 999 mls/hr 04/23/18 03:09 04/23/18 03:52 Sodium Chloride 0.9% 1000 Ml IV 04/23/18 04:09 0 mls/hr .Q1H1M STA Infusion Nitroglycerin/Dextrose 250 mls @ 1.5 mls/hr 04/23/18 03:16 04/23/18 03:28 Ntg 0.2mg/Ml In D5w Glass IV 05/23/18 03:15 5 mcg/min .Q24H PRN 1.5 mls/hr CHEST PAIN Administration Protocol 5 MCG/MIN Nitroglycerin/Dextrose Confirm 04/23/18 03:23 Ntg 0.2mg/Ml In D5w Glass Administered 04/23/18 03:24 Dose 250 mls @ ud IV .Rogate-Nexi ONE Lab/Rad Data: Laboratory Result Diagrams 04/23/18 03:33 04/23/18 03:33 Laboratory Results 04/23/18 04/23/18 04/23/18 Range/Units 03:33 03:33 03:33 WBC 21.7 H (4.0-10.5) K/mm3 RBC 6.01 H (4.1-5.6) M/mm3 Hgb 16.0 (12.5-18.0) gm/dl Hct 50.3 H (42-50) % MCV 83.7 (78-100) fl MCH 26.6 (26-32) pg MCHC 31.8 L (32-36) g/dl RDW 15.1 H (11.5-14.0) % Plt Count 77 L (150-450) K/mm3 Absolute Granulocytes 17.67 H (1.4-6.9) Segmented Neutrophils 77 H (36.-66.) % Band Neutrophils 3 H (0.0-2.0) % Lymphocytes (Manual) 11 L (24-44) % Monocytes (Manual) 9 (0.0-12.0) % Platelet Estimate NORMAL (NORMAL) RBC Morphology NORMAL Sodium 139 (137-145) mmol/L Potassium 3.8 (3.5-5.1) mmol/L Chloride 101 (98-107) mmol/L Carbon Dioxide 21 L (22-30) mmol/L Anion Gap 21.1 H (5-15) MEQ/L BUN 18 (9-20) mg/dL Creatinine 1.88 H (0.66-1.25) mg/dL Estimated GFR 38.4 ML/MIN Glucose 197 H (74-106) mg/dL Calcium 9.3 (8.4-10.2) mg/dL Total Bilirubin 0.70 (0.2-1.3) mg/dL AST 39 (17-59) U/L ALT 34 (0-50) U/L Alkaline Phosphatase 190 H (38-126) U/L Troponin I 1.550 H* (0.000-0.034) ng/mL NT-Pro-B Natriuret Pep 363 (0-900) pg/mL Serum Total Protein 9.4 H (6.3-8.2) g/dL Albumin 4.7 (3.5-5.0) g/dL Amylase 82 (30-110) U/L Lipase 84 (23-300) U/L - Progress Progress: improved Air Movement: fair Progress Note: 04/23/18 03:37 67-year-old white male arrives with complaint of epigastric pain patient cannot give me the duration however family states it has been since yesterday he apparently got progressively worse and medics were summoned. Medics note the patient was diaphoretic tachycardic and with high blood pressure on arrivalto the patient's house, they started IV normal saline. On arrival patient is noted to have an EKG remarkable for tachycardia which appears to be atrial fibrillation approximately 1 23 bpm normal axis there appears to be an acute AK as evidenced by ST elevations in leads V2 through V5. Patient has wet rales throughout his lungs with rhonchi. Patient is given aspirin 325 mg rectally apparently could not chew the aspirin, , he was started on a nitro drip 5 mcg/m/m also given Lasix 40 mg IV. Iv normal saline rate was decreased. Dr. Lopez at [facility] was contacted, the patient's condition vitals and EKG were discussed with him as well as treatments rendered. He has excepted the patient for transfer to [facility] he will be transferred emergently to [facility] he will be continued on nitro drip with oxygen, continued telemetry, and ACLS protocol. 04/23/18 05:05 - Departure Time of Disposition: 03:41 Departure Disposition: Transfer ([facility] ER) Clinical Impression: Epigastric pain Acute AK Qualifiers: Myocardial infarction type: ST elevation myocardial infarction Involved coronary artery: unspecified coronary artery Qualified Code(s): I21.3 - ST elevation (STEMI) myocardial infarction of unspecified site Condition: Fair Critical Care Time: No Referrals: DOCTOR,NO FAMILY [Primary Care Provider] -
[2018-04-23 03:36] LABS: Granulocyte Absolute (ANC) 17.67 (1.4-6.9); Hematocrit 50.3 % (42-50); Mean Cell Volume 83.7 fl (78-100); Mean Corpuscular Hemoglobin 26.6 pg (26-32); Mean Corpuscular Hgb Concent. 31.8 g/dl (32-36); Red Blood Count 6.01 M/mm3 (4.1-5.6); Red Cell Distribution Width 15.1 % (11.5-14.0); White Blood Count 21.7 K/mm3 (4.0-10.5)
[2018-04-23 03:53] LABS: ALBUMIN 4.7 g/dL (3.5-5.0); ANION GAP 21.1 MEQ/L (5-15); BILIRUBIN,TOTAL 0.7 mg/dL (0.2-1.3); Calcium 9.3 mg/dL (8.4-10.2); Creatinine 1 1.88 mg/dL (0.66-1.25); Potassium 3.8 mmol/L (3.5-5.1); Total Protein 9.4 g/dL (6.3-8.2)
[2018-04-23] MEDS ORDERED: ASPIRIN 600 MG PR ONE (03:53)
[2018-04-23 04:18] LABS: BAND 3 % (0.0-2.0); Lymphocytes 11 % (24-44); Monocyte 9 % (0.0-12.0); Neutrophils 77 % (36.-66.); Platelet Estimate NORMAL (NORMAL); Total Cells Counted 100
[2018-04-23 04:20] LABS: Platelet Count 77 K/mm3 (150-450)
[2018-04-23 04:22] LABS: TROPONIN 1.55 ng/mL (0.000-0.034)
[2018-04-23 04:44] VITALS: BP 168/127; PULSE 121; O2SAT 94
--- NOTE | 2018-04-23 08:34 | XRAY ---
Indication: Chest pain. Comparison: March 01, 2018. Portable chest demonstrates new diffuse bilateral infiltrates without consolidation/large effusion. Heart is not enlarged for AP portable technique. Bony thorax intact again with mild osteopenia and degenerative changes. Comment: Infiltrates not reported on preliminary interpretation by the interpreting ER clinician. Telephone report given to Dr. Almanza in the ER at 0828 hrs. on April 23, 2018.
== END 2018-04-23 03:41 | disposition short-term general hospital (02) ==
LOC: ED 03:02
DX: R10.13 Epigastric pain (principal); I21.3 ST elevation (STEMI) myocardial infarction of unspecified site; J44.9 Chronic obstructive pulmonary disease, unspecified; I10 Essential (primary) hypertension; I48.2 Chronic atrial fibrillation
CPT/HCPCS: 36415; 71045; 80053; 82150; 83690; 83880; 84484; 85025; 93005; 96360; 96365; 96374; 99284; 99291; J1940; A9270-GY